=== PATIENT | female | born 1955 | race Two or more races ===

== ENCOUNTER 2023-06-16 07:19 | Emergency (ER) | payer MEDICARE, OTHER ==
[~2023-06-16] VITALS: Ht 154.9 cm; Wt 77.1 kg
[2023-06-16 08:17] VITALS: BP 144/85; PULSE 80; RESP 16; TEMP 97.8; O2SAT 95
== END 2023-06-16 08:29 | disposition home or self-care (01) ==
LOC: ER 07:19
DX: S00.11XA Contusion of right eyelid and periocular area, initial encounter (principal); W22.8XXA Striking against or struck by other objects, initial encounter; Y93.89 Activity, other specified; Y92.89 Other specified places as the place of occurrence of the external cause; Y99.8 Other external cause status